=== PATIENT | female | born 1975 | race African-American/Black ===

== ENCOUNTER 2017-08-02 05:23 | Observation (INO) | payer OTHER ==
[2017-08-02] MEDS ORDERED: Nitroglycerin 2% Ointment 1 INCH/1 GM Packet ONE (05:38)
[2017-08-02 05:50] LABS: #Basophils 0.1 thou/uL (0.0-0.2); #Eosinphils 0.1 thou/uL (0.0-0.7); #Lymphocytes 1.6 thou/uL (1.20-3.40); #Monocytes 0.8 thou/uL (0.11-0.59); #Neutrophils 6.6 thou/uL (1.40-6.50); %Lymphocytes 17.9 % (21.0-51.0); %Monocytes 8.3 % (0.0-10.0); Hematocrit 40.4 % (36.0-47.0); Mean Platelet Volume 8.4 fL (7.4-10.4); Red Blood Cell (RBC) Count 4.19 mill/uL (4.20-5.40); White Blood Cell (WBC) Count 9.1 thou/uL (4.8-10.8)
[2017-08-02 05:53] LABS: PTT 30.3 SEC (22.9-36.1)
[2017-08-02 06:05] LABS: ALT (SGPT) 14 U/L (8-55); AST (SGOT) 15 U/L (5-34); Alkaline Phosphatase 83 U/L (40-150); Anion Gap 13 mmol/L (10-20); BUN (Urea Nitrogen) 11 mg/dL (7.0-18.7); Bilirubin, Total 0.4 mg/dL (0.2-1.2); CK (CPK) 93 U/L (29-168); Calc. Creatinine Clearance 0 mL/min (70-130); Calcium 9.1 mg/dL (7.8-10.44); Carbon Dioxide 25 mmol/L (22-29); Chloride 105 mmol/L (98-107); Estimated GFR-MDRD 81; Globulin 3.7 g/dL (2.4-3.5); Lipase 28 U/L (8-78); Protein, Total 7.5 g/dL (6.0-8.3)
[2017-08-02 06:08] LABS: Troponin I Less than 0.010 ng/mL (< 0.028)
[2017-08-02] MEDS ORDERED: Sodium Chloride 0.65% Nasal 44 ML BOT EA NARE PRN (07:48)
[2017-08-02] MEDS ORDERED: Dextrose 5% in Water 1,000 ML IV PRN (07:48)
[2017-08-02] MEDS ORDERED: Mag-Al 1200 mg/1200 mg/30 ML UDCUP PO PRN (07:48)
[2017-08-02] MEDS ORDERED: Dextrose 50% Abboject 50 ML SYRINGE SLOW IVP PRN (07:48)
[2017-08-02] MEDS ORDERED: Milk Of Magnesia 30 ML UDCUP PO PRN (07:48)
[2017-08-02] MEDS ORDERED: Ondansetron HCl/PF 4 MG/2 ML Vial IVP PRN (07:48)
[2017-08-02] MEDS ORDERED: Ondansetron ODT 4 MG TAB PO PRN (07:48)
[2017-08-02] MEDS ORDERED: HumaLOG 300 UNITS/3 ML VIAL SC PRN ×2 (07:48)
[2017-08-02] MEDS ORDERED: Loperamide HCl 2 MG CAP PO PRN (07:48)
[2017-08-02] MEDS ORDERED: Senokot 8.6 MG TAB PO PRN (07:48)
[2017-08-02] MEDS ORDERED: Chloraseptic Spray 180 ml Bottle PO PRN (07:48)
[2017-08-02] MEDS ORDERED: Acetaminophen 325 MG TAB PO PRN (07:48)
[2017-08-02] MEDS ORDERED: Loratadine 10 MG TAB PO PRN (07:48)
[2017-08-02] MEDS ORDERED: hydrALAZINE 20 MG/ML VIAL SLOW IVP PRN (07:48)
[2017-08-02] MEDS ORDERED: Zolpidem Tartrate 5 MG TAB PO PRN (07:48)
[2017-08-02] MEDS ORDERED: Diabetic Tussin 200 MG/10 ML UDCUP PO PRN (07:48)
[2017-08-02] MEDS ORDERED: Nitroglycerin 0.4 MG TAB (25 Tab Bottle) SL PRN (07:48)
[2017-08-02] MEDS ORDERED: Eucerin (Mineral Oil/Petrolatum,White) 30 gm Jar TOP PRN (07:48)
[2017-08-02 08:15] VITALS: BMI 60.4
[2017-08-02] MEDS: Aspirin 325 MG TAB PO SCH (08:52)
[2017-08-02] MEDS: Famotidine 20 MG TAB PO SCH ×2 (08:52→19:51)
[2017-08-02] MEDS: HYDROcodone/Acetaminophen 5/325 mg Tablet PO PRN (08:53)
[2017-08-02] MEDS ORDERED: AMLODIPINE PO SCH (09:00)
[2017-08-02] MEDS ORDERED: Dapagliflozin Propanediol [Farxiga] 10 MG PO SCH (09:00)
[2017-08-02] MEDS ORDERED: [UNRECOGNIZED DRUG - OTHER] PO SCH (09:00)
[2017-08-02] MEDS ORDERED: VALSARTAN PO SCH (09:00)
[2017-08-02] MEDS ORDERED: Atorvastatin Calcium 40 MG TAB PO SCH ×2 (09:00→21:00)
[2017-08-02 09:13] LABS: Troponin I Less than 0.010 ng/mL (< 0.028)
--- NOTE | 2017-08-02 10:26 | RAD ---
PORTABLE AP CHEST: Date: 08/02/17 HISTORY: Chest pain. COMPARISON: 09/01/15. FINDINGS: Cardiac silhouette is magnified by projection and is at the upper limits of normal in size. Pulmonary vasculature is within normal limits. Lungs remain clear. There has been no significant interval sesay ge from the prior study. IMPRESSION: No acute cardiopulmonary process. POS: [facility]
[2017-08-02 12:35] LABS: Troponin I Less than 0.010 ng/mL (< 0.028)
--- NOTE | 2017-08-02 14:07 | HP ---
PRIMARY CARE PHYSICIAN: Dr. Ashley Paiz. REASON FOR ADMISSION: Chest pain. HISTORY OF PRESENT ILLNESS: A 42-year-old -English female with a history of hypertension, di abetes type 2, morbid obesity, dyslipidemia who presented to the emergency room for evaluation of hanane st pain. Patient reports that for the last one week she is experiencing on and off chest pain on a d aily basis, intensity and frequency of pain is gradually getting worse. Patient describes typical ep isode with chest pain on the left side, sharp in nature, lasts for a few seconds and subsides by itse lf with subsequent nagging pain. There is no specific aggravating or relieving factor. It happens a nytime even if resting, walking or sleeping. She feels poking sensation in her left side of the ches t underneath of her left breast. Last night around 10:00 p.m. she was having exactly similar pain, b ut it was more intense and more prolonged as well as pain also started radiating to left upper extrem ity and she was concerned about it and decided to come to the emergency room for evaluation. Patient denies any relation of chest pain with food, respiration or activity. She denies any acid reflux. She denies any rash. She denies any trauma. She denies any shortness of breath, palpitation, dizzin ess, nausea, vomiting or diaphoresis. Patient denies any UTI symptoms. She denies any constipation, diarrhea, melena, hematochezia. She d enies any similar pain in the past. She denies any fever or flu-like illness. ALLERGIES: No known drug allergies. CURRENT HOME MEDICATIONS: Amlodipine with valsartan 5/160 one tablet p.o. daily, Tenormin 25 mg p.o. daily, Lipitor 40 mg p.o. daily, Farxiga 10 mg p.o. daily, Aldactazide 25/25 one tablet p.o. daily, Ambien 10 mg p.o. at bedtime p.r.n. REVIEW OF SYSTEMS: The following complete review of systems was negative, unless otherwise mentioned in the HPI or below: Constitutional: Weight loss or gain, ability to conduct usual activities. Skin: Rash, itching. Eyes: Double vision, pain. ENT/Mouth: Nose bleeding, neck stiffness, pain, tenderness. Cardiovascular: Palpitations, dyspnea on exertion, orthopnea. Respiratory: Shortness of breath, wheezing, cough, hemoptysis, fever or night sweats. Gastrointestinal: Poor appetite, abdominal pain, heartburn, nausea, vomiting, constipation, or diarr hea. Genitourinary: Urgency, frequency, dysuria, nocturia. Musculoskeletal: Pain, swelling. Neurologic/Psychiatric: Anxiety, depression. Allergy/Immunologic: Skin rash, bleeding tendency. Please see my HPI for pertinent positives and negatives. All other review of systems reviewed and ne gative except as mentioned in the HPI. PAST MEDICAL HISTORY: Morbid obesity with BMI 60, diabetes type 2, hypertension, dyslipidemia. PAST SURGICAL HISTORY: Hysterectomy and x2. PAST PSYCHIATRIC HISTORY: Reviewed and negative. SOCIAL HISTORY: Patient is and lives at home with the family. No history of tobacco, alcoho l or illicit drug abuse. She is not working. FAMILY HISTORY: Significantly positive for coronary artery disease among several family members. No family history of cancer or stroke. EMERGENCY ROOM COURSE: Patient is given nitro patch and IV fluid. PHYSICAL EXAMINATION: VITAL SIGNS: On arrival, blood pressure 147/96, pulse 85, respiratory rate 22, temperature 98.5, sat uration 98% on room air, weight 145.2 kilograms. GENERAL: Patient is currently alert, awake, no obvious acute distress. HEENT: Normocephalic, atraumatic. Eyes: Pupils round, reactive to light. Extraocular muscles inta ct. ENT: Oropharynx within normal limits. Moist mucous membranes. No oral lesions. No pharyngeal eryt cari, no exudate. NECK: Supple. Range of motion is normal. No meningeal signs of irritation. LUNGS: Clear to auscultation without any rhonchi or rales. CARDIAC: S1, S2 regular without any murmur. ABDOMEN: Morbid obesity limiting examination. No peritoneal sign, no organomegaly, no mass, no supr apubic tenderness. BACK: Unremarkable, no CVA tenderness. EXTREMITIES: Upper extremity passive movements of all joints are normal. Lower extremities: No jessee ma, no calf tenderness. Good peripheral pulsation. SKIN: No skin rash. HEMATOLOGICAL: No lymphadenopathy. PSYCHIATRIC: Normal affect. NEUROLOGIC: Nonfocal examination. SIGNIFICANT LABS: EKG based on my review, normal sinus rhythm, left atrial enlargement. Chest x-ray based on my review, no acute cardiopulmonary process. CBC: WBC 9.1, hemoglobin 12.7, platelet 233. INR 1.0. BMP shows sodium 139, potassium 3.6, chloride 105, carbon dioxide 25, BUN 11, creatinine 0.91, glucose 145, calcium 9.1. LFT: AST 15, ALT 14, alkaline phosphatase 83, albumin 3.8, CK 93, C K-MB 1.1, troponin I less than 0.010, BNP 16.4 and subsequent cardiac enzymes negative x2. Triglycer patel 119. Cholesterol 162, LDL 100, HDL 38, lipase 28. ASSESSMENT AND PLAN: 1. Acute and recurrent chest pain. Patient's chest pain description is predominantly noncardiac and most likely nonanginal. This patient has several risk factors for coronary artery disease including diabetes, hypertension, dyslipidemia, and family history. Currently, EKG is negative for any ischem ia. Chest x-ray is normal. Cardiac enzymes are negative. At this point, for benefit of doubt and t o rely the patient's concerns and anxiety, we will perform exercise Cardiolite stress test given the patient's morbid obesity that can be done in 2 days protocol. If it is done today and if that come b ack negative, then we will consider discharging her later on today. Otherwise, we will wait for comp lete stress test to be done. Dietary education and weight loss education and healthy lifestyle measu re discussed with the patient. Meanwhile, we will continue with aspirin. We will also consider blayne ng Pepcid 20 mg p.o. b.i.d. 2. Hypertension. At this point, we will continue patient's home medication of amlodipine with valsa rtan 5/160 one tablet p.o. daily and Tenormin 25 mg p.o. daily will be continued after discharge. We will also continue Aldactazide 25/25 one tablet p.o. daily. 3. Dyslipidemia. Lipid profile checked and that is well controlled with Lipitor 40 mg p.o. at bedti me. 4. Diabetes type 2. We will continue Farxiga 10 mg p.o. daily. Diabetic diet will be given after s tress test. 5. Insomnia. We will continue Ambien 10 mg p.o. at bedtime p.r.n. 6. Morbid obesity with BMI 60. Dietary education given, weight loss education given. Healthy lifes tyle measures discussed with the patient. 7. Deep venous thrombosis prophylaxis not needed because we are expecting discharge in 24 hours. 8. Gastrointestinal prophylaxis, Pepcid 20 mg p.o. b.i.d. 9. Code status: The patient is FULL CODE. Patient does not have any surrogate decision maker. Disposition and plan based on stress test result.
[2017-08-02] MEDS ORDERED: Regadenoson 0.4 MG/5 ML SYRINGE ONE (14:39)
[2017-08-02] MEDS: Spironolactone/Hctz 25 MG/25 MG TABLET PO SCH (15:07)
[2017-08-02] MEDS: Amlodipine 5 MG TAB PO SCH (15:07)
[2017-08-02] MEDS: Valsartan 80 MG TAB PO SCH (15:08)
[2017-08-02] MEDS: Nitroglycerin 2% Ointment 1 INCH/1 GM Packet TOP SCH ×2 (15:08→19:51)
[2017-08-02 20:11] VITALS: TEMP 98.4
[2017-08-03] MEDS: Nitroglycerin 2% Ointment 1 INCH/1 GM Packet TOP SCH (05:59)
[2017-08-03 07:56] VITALS: BP 134/81
[2017-08-03] MEDS: Aspirin 325 MG TAB PO SCH (09:13)
[2017-08-03] MEDS: HYDROcodone/Acetaminophen 5/325 mg Tablet PO PRN (09:14)
[2017-08-03] MEDS: Valsartan 80 MG TAB PO SCH (09:14)
[2017-08-03] MEDS: Spironolactone/Hctz 25 MG/25 MG TABLET PO SCH (09:14)
[2017-08-03] MEDS: Famotidine 20 MG TAB PO SCH (09:15)
[2017-08-03] MEDS: Amlodipine 5 MG TAB PO SCH (09:15)
--- NOTE | 2017-08-03 11:22 | NM ---
CARDIAC SPECT WITH EJECTION FRACTION AND WALL MOTION: HISTORY: 42-year-old female with chest pain. History of hypertension and diabetes mellitus. TECHNIQUE/FINDINGS: Patient was injected with 33 mCi technetium-99m sestamibi intravenously for stress images and patient was injected with 33.0\ mCi of technetium-99m sestamibi intravenously for resting images. Multiple SPECT images in the short axis, vertical long axis, and horizontal long axis demonstrate no scan evidence for overt infarct or ischemia. TID: 1.08 LHR: 0.37 EDV: 76 ml EF: 64% MYOCARDIAL PERFUSION WALL MOTION: Wall motion is unremarkable. IMPRESSION: Normal study POS: [facility]
--- NOTE | 2017-08-03 11:46 | PDOC.PN ---
- Subjective Encounter Start Date: 08/03/17 Encounter Start Time: 07:10 Patient seen and examined. No new complaints. No overnight events - Objective Resuscitation Status: Resuscitation Status FULL:Full Resuscitation MAR Reviewed: Yes Vital Signs & Weight: Vital Signs (12 hours) Temp Pulse Resp BP BP Pulse Ox 08/03/17 09:15 71 134/81 08/03/17 07:30 98.4 F 71 15 08/03/17 07:15 98.4 F 71 16 134/81 71 L 08/03/17 04:00 67 18 132/64 96 Weight Weight 320 lb I&O: 08/02/17 08/03/17 08/04/17 06:59 06:59 06:59 Intake Total 500 240 Output Total 1500 Balance -1000 240 Result Diagrams: 08/02/17 05:41 08/02/17 05:41 Additional Labs: Accuchecks 08/02/17 08/02/17 19:51 17:13 POC Glucose 162 H 115 H Radiology Reviewed by me: Yes (stress test negative) EKG Reviewed by me: Yes (nsr) Phys Exam - Physical Examination Constitutional: NAD HEENT: PERRLA, moist MMs, sclera anicteric Neck: no JVD, supple Respiratory: no wheezing, no rales, no rhonchi Cardiovascular: RRR, no significant murmur, no rub Gastrointestinal: soft, non-tender, no distention, positive bowel sounds Musculoskeletal: no edema, pulses present Neurological: non-focal, normal sensation Lymphatic: no nodes Psychiatric: normal affect, A&O x 3 Skin: no rash, normal turgor Dx/Plan (1) Chest pain Code(s): R07.9 - CHEST PAIN, UNSPECIFIED Status: Acute (2) Diabetes type 2, controlled Code(s): E11.9 - TYPE 2 DIABETES MELLITUS WITHOUT COMPLICATIONS Status: Chronic (3) Dyslipidemia Code(s): E78.5 - HYPERLIPIDEMIA, UNSPECIFIED Status: Chronic (4) Hypertension Code(s): I10 - ESSENTIAL (PRIMARY) HYPERTENSION Status: Chronic (5) Morbid obesity with BMI of 60.0-69.9, adult Code(s): E66.01 - MORBID (SEVERE) OBESITY DUE TO EXCESS CALORIES; Z68.44 - BODY MASS INDEX (BMI) 60.0-69.9, ADULT Status: Chronic - Plan cont current plan of care * medication reviewed as below * symptomatic treatment * see discharge summery * stress test normal. Review of Systems - Review of Systems ENT: negative: Ear Pain, Ear Discharge, Nose Pain, Nose Discharge, Nose Congestion, Mouth Pain, Mouth Swelling, Throat Pain, Throat Swelling, Other Respiratory: negative: Cough, Dry, Shortness of Breath, Hemoptysis, SOB with Excertion, Pleuritic Pain, Sputum, Wheezing Cardiovascular: negative: Chest Pain, Palpitations, Orthopnea, Paroxysmal Noc. Dyspnea, Edema, Light Headedness, Other Gastrointestinal: negative: Nausea, Vomiting, Abdominal Pain, Diarrhea, Constipation, Melena, Hematochezia, Other Genitourinary: negative: Dysuria, Frequency, Incontinence, Hematuria, Retention , Other Musculoskeletal: negative: Neck Pain, Shoulder Pain, Arm Pain, Back Pain, Hand Pain, Leg Pain, Foot Pain, Other - Medications/Allergies Allergies/Adverse Reactions: Allergies Allergy/AdvReac Type Severity Reaction Status Date / Time No Known Allergies Allergy Verified 05/19/13 13:26
--- NOTE | 2017-08-03 15:05 | DIS ---
DATE OF ADMISSION: 08/02/2017 DATE OF DISCHARGE: 08/03/2017 PRIMARY CARE PHYSICIAN: Dr. Ashley Paiz. DISCHARGE DISPOSITION: Home. PRIMARY DISCHARGE DIAGNOSIS: Chest pain, ruled out acute coronary syndrome. SECONDARY DISCHARGE DIAGNOSES: Morbid obesity with BMI 60, diabetes type 2, hypertension, dyslipidem ia. PRIMARY PROCEDURE/OPERATION: None. RADIOLOGICAL INVESTIGATION: Chest x-ray normal. Stress test negative. SIGNIFICANT LABORATORY: WBC 9.1, hemoglobin 12.7, INR 1.0. Creatinine 0.91, electrolytes normal. L FTs normal. Cardiac enzymes negative. LDL 100, lipase 28. BNP 16.4. DISCHARGE MEDICATIONS: Pepcid 20 mg p.o. b.i.d., Ventolin HFA 2 puffs q.6 hourly p.r.n., amlodipine/ valsartan 5/160 one tablet p.o. daily, Tenormin 25 mg p.o. daily, Lipitor 40 mg p.o. at bedtime, Forx iga 10 mg p.o. daily, Aldactazide 25 mg p.o. daily, Ambien 10 mg p.o. at bedtime p.r.n. CONTRAINDICATIONS: None. CODE STATUS: FULL CODE. INPATIENT CONSULTANTS: None. ALLERGIES: No known drug allergies. DISCHARGE PLAN: Post hospital, the patient will follow up with primary care physician in 1 week. HOSPITAL COURSE: A 42-year-old female with above-mentioned medical problem, who was admitted by me. Please see my H&P for further details. The patient was admitted for chest pain. Initially, electro cardiogram was normal. Cardiac enzymes were negative. Chest x-ray was normal. Patient has several risk factors for coronary artery disease and that is why we kept this patient in the hospital for hanane st pain workup. We did stress test and stress test came back negative. Stress test was done in 2 da ys protocol. Overall, this patient is medically stable. The patient was seen and examined at bedside today. Connie tavares see my progress note from today for further details. Plan of care discussed with the patient. Al l new medication prescription given to her. The patient is advised to get outpatient pulmonary funct ion test to rule out underlying asthma.
== END 2017-08-03 11:45 | disposition home or self-care (01) ==
LOC: ERS 05:23 → 2SW 07:35
PROVIDERS: ADMIT Internal Medicine; ATTEND Internal Medicine
DX: R07.89 Other chest pain (principal); I10 Essential (primary) hypertension; E11.9 Type 2 diabetes mellitus without complications; E78.5 Hyperlipidemia, unspecified; G47.00 Insomnia, unspecified; E66.01 Morbid (severe) obesity due to excess calories; Z68.44 Body mass index [BMI] 60.0-69.9, adult; Z79.84 Long term (current) use of oral hypoglycemic drugs; Z79.899 Other long term (current) drug therapy; Z90.710 Acquired absence of both cervix and uterus; Z87.891 Personal history of nicotine dependence
CPT/HCPCS: 36415; 36416; 71010; 78452; 80053; 80061; 82550; 82553; 83690; 83880; 84484; 85025; 85610; 85730; 93005; 93017; 94640; 94760; 96374; A9500; G0378; J2405; J2785; J7620; Q0162

== ENCOUNTER 2017-08-07 09:35 | Observation (INO) | payer OTHER ==
[~2017-08-07 09:35] MED LIST: ISOVUE-370 76%-LOCM 1 ML ONE
[2017-08-07 10:18] LABS: #Eosinphils 0.1 thou/uL (0.0-0.7); #Lymphocytes 1.7 thou/uL (1.20-3.40); #Monocytes 0.8 thou/uL (0.11-0.59); #Neutrophils 5.6 thou/uL (1.40-6.50); %Basophils 0.2 % (0.0-1.0); %Eosinophils 1.2 % (0.0-10.0); %Lymphocytes 21.2 % (21.0-51.0); %Monocytes 9.3 % (0.0-10.0); Hematocrit 41.7 % (36.0-47.0); Mean Platelet Volume 8.2 fL (7.4-10.4); Red Blood Cell (RBC) Count 4.28 mill/uL (4.20-5.40); White Blood Cell (WBC) Count 8.2 thou/uL (4.8-10.8)
[2017-08-07] MEDS ORDERED: Nitroglycerin 2% Ointment 1 INCH/1 GM Packet ONE (10:20)
[2017-08-07 10:43] LABS: ALT (SGPT) 14 U/L (8-55); AST (SGOT) 17 U/L (5-34); Alkaline Phosphatase 83 U/L (40-150); Anion Gap 11 mmol/L (10-20); BUN (Urea Nitrogen) 12 mg/dL (7.0-18.7); Bilirubin, Total 0.6 mg/dL (0.2-1.2); CK (CPK) 69 U/L (29-168); Calc. Creatinine Clearance 0 mL/min (70-130); Calcium 9.4 mg/dL (7.8-10.44); Carbon Dioxide 26 mmol/L (22-29); Chloride 102 mmol/L (98-107); Estimated GFR-MDRD 77; Globulin 3.4 g/dL (2.4-3.5); Lipase 26 U/L (8-78); Protein, Total 7.1 g/dL (6.0-8.3)
[2017-08-07 10:47] LABS: Troponin I Less than 0.010 ng/mL (< 0.028)
--- NOTE | 2017-08-07 10:50 | RAD ---
PORTABLE AP CHEST: Date: 08-07-17 History: Chest pain. Comparison: 08-02-17 FINDINGS: Cardiac silhouette and pulmonary vasculature are within normal limits. Lungs are clear. There has bee n no interval change from prior study. IMPRESSION: No acute cardiopulmonary process. POS: [facility]
[2017-08-07] MEDS ORDERED: PROVENTIL INHALER 6.7 G (200 INHALATIONS) INH PRN (12:09)
[2017-08-07] MEDS ORDERED: Non-Formulary Item 1 EACH (Zolpidem Tartrate [Ambien] 10 MG) PO PRN (12:09)
[2017-08-07] MEDS ORDERED: Zolpidem Tartrate 5 MG TAB PO PRN (12:30)
[2017-08-07] MEDS ORDERED: Loratadine 10 MG TAB PO PRN (12:37)
[2017-08-07] MEDS ORDERED: Acetaminophen 325 MG TAB PO PRN (12:37)
[2017-08-07] MEDS ORDERED: Dextrose 5% in Water 1,000 ML IV PRN (12:37)
[2017-08-07] MEDS ORDERED: Senokot 8.6 MG TAB PO PRN ×2 (12:37)
[2017-08-07] MEDS ORDERED: traMADol HCl 50 MG TAB PO PRN (12:37)
[2017-08-07] MEDS ORDERED: Diabetic Tussin 200 MG/10 ML UDCUP PO PRN (12:37)
[2017-08-07] MEDS ORDERED: Calcium Carbonate 500 MG ChewTAB PO PRN (12:37)
[2017-08-07] MEDS ORDERED: Bisacodyl 5 MG TAB PO PRN ×2 (12:37)
[2017-08-07] MEDS ORDERED: HYDROcodone/Acetaminophen 5/325 mg Tablet PO PRN (12:37)
[2017-08-07] MEDS ORDERED: cloNIDine 0.1 MG TAB PO PRN (12:37)
[2017-08-07] MEDS ORDERED: Ondansetron HCl/PF 4 MG/2 ML Vial IVP PRN (12:37)
[2017-08-07] MEDS ORDERED: Lorazepam 1 MG TAB PO PRN (12:37)
[2017-08-07] MEDS ORDERED: HumaLOG 300 UNITS/3 ML VIAL SC PRN ×2 (12:37)
[2017-08-07] MEDS ORDERED: Dextrose 50% Abboject 50 ML SYRINGE SLOW IVP PRN (12:37)
[2017-08-07] MEDS ORDERED: Nitroglycerin 0.4 MG TAB (25 Tab Bottle) SL PRN (12:37)
[2017-08-07] MEDS ORDERED: hydrALAZINE 20 MG/ML VIAL SLOW IVP PRN (12:37)
[2017-08-07] MEDS ORDERED: Mag-Al 1200 mg/1200 mg/30 ML UDCUP PO PRN (12:37)
[2017-08-07] MEDS ORDERED: Benzonatate 100 MG CAP PO PRN (12:37)
--- NOTE | 2017-08-07 13:37 | HP ---
DATE OF ADMISSION: 08/07/2017 PRIMARY CARE PHYSICIAN: Dr. Ashley Paiz CHIEF COMPLAINT: Chest pain. HISTORY OF PRESENTING ILLNESS: Ms. Spears is a 42-year-old morbidly obese diabetic -Iranian f emale with a history of hypertension as well who presented to the ER with the above-mentioned complai nt. History is mainly obtained by the patient herself and electronic medical records have been revie wed. Case has been discussed with the admitting ER physician. Ms. Spears was admitted just few days ago on 08/02/2017 with similar complaints and underwent a nuclea r medicine stress test to rule out ACS. It showed preserved ejection fraction of 64% with unremarkab le wall motion and no ischemia or infarction. She was discharged on 08/03/2017. Today, she comes back in for persistent chest pain. She reports it as a pressure-like sensation. Sh e reports it as 10/10 in intensity and it comes and goes. She cannot recall any relieving factors. It happens at rest and at exertion. No associated symptoms like palpitation, nausea, dizziness, or d iaphoresis. The pain is nonradiating. The patient denies any recent illnesses. Upon presentation to the emergency room, she was hemodynami simona stable today with a blood pressure of 119/79, a pulse of 76. Her initial cardiac enzyme is neg ative and EKG is unremarkable. BNP is within normal limits. Given the fact that the patient had sig nificant family history of cardiac disease. The patient is being admitted again for further cardiac workup, possibly cardiac catheterization. She reports that her sister at the age of 47 of a mas sive heart attack in both of parents in the 60s with heart attack. She does report that she is under a lot of stress lately, but does not elaborate. PAST MEDICAL HISTORY: 1. Diabetes mellitus. 2. Hypertension. 3. Morbid obesity. 4. Dyslipidemia. PAST SURGICAL HISTORY: Hysterectomy and . PSYCHIATRIC HISTORY: Reports anxiety. SOCIAL HISTORY: She is and lives at home with the family. No history of drug, tobacco or al cohol abuse. FAMILY HISTORY: Significant for coronary artery and as stated above. Her grandfather also had a str juanis. ALLERGIES: No known medication allergies. CURRENT MEDICATIONS: As per the most recent discharge summary dictated 4 days ago. She is supposed to be taking the following medications: Pepcid 20 mg p.o. b.i.d., Ventolin inhaler as needed, amlodi pine/valsartan 5/160 mg 1 tablet p.o. daily, Tenormin 25 mg daily, Lipitor 40 mg daily, Farxiga 10 mg daily, Aldactazide 25 mg daily, and Ambien 10 mg daily at bedtime p.r.n. REVIEW OF SYSTEMS: The following complete review of systems was negative, unless otherwise mentioned in the HPI or below: CONSTITUTIONAL: Weight loss or gain, ability to conduct usual activities. SKIN: Rash, itching. EYES: Double vision, pain. ENT/MOUTH: Nose bleeding, neck stiffness, pain, tenderness. CARDIOVASCULAR: Palpitations, dyspnea on exertion, orthopnea. RESPIRATORY: Shortness of breath, wheezing, cough, hemoptysis, fever or night sweats. GASTROINTESTINAL: Poor appetite, abdominal pain, heartburn, nausea, vomiting, constipation, or diarr hea. GENITOURINARY: Urgency, frequency, dysuria, nocturia. MUSCULOSKELETAL: Pain, swelling. NEUROLOGIC/PSYCHIATRIC: Anxiety, depression. ALLERGY/IMMUNOLOGIC: Skin rash, bleeding tendency. CODE STATUS: FULL CODE, discussed with the patient. LABORATORY DATA: CBC is unremarkable. Her D-dimer is elevated at 0.64. Serum chemistries: Sodium 135, blood sugar 123. Troponin less than 0.010. Her liver enzymes are within normal limits. Lipase is normal at 26. Chest x-ray by my review has no evidence of pleural effusion, edema, or infiltrate . A 12-lead EKG by my review shows normal sinus rhythm without any acute ST or T-wave changes indicativ e of acute coronary syndrome. PHYSICAL EXAMINATION: VITAL SIGNS: Upon presentation include blood pressure 119/79, pulse of 76, respirations 17, saturati ng 100% on room air, and temperature 98.2. GENERAL: She appears uncomfortable and somewhat noncooperative because of possibly persistent pain. HEENT: Mucous membrane is moist and pink. No oropharyngeal exudate or erythema. Head is normocepha lic, atraumatic. Pupils equally reactive to light and accommodation. Extraocular movements intact. NECK: Supple without any lymphadenopathy, JVD or bruit. CHEST: Clear to auscultation without any wheezing, rales, or rhonchi. Rate and rhythm is regular wi thout any murmur, rubs, or gallops. ABDOMEN: Soft, nontender, nondistended, positive bowel sounds. EXTREMITIES: Free of any cyanosis, clubbing, or edema. NEUROLOGIC: Nonfocal. SKIN: Free of any rashes or bruises, feels warm and dry. PSYCHIATRIC: Appears anxious. VASCULAR: +2 pedal pulses felt bilaterally. IMPRESSION AND PLAN: 1. Persistent and recurrent chest pain. Given the patient's multiple risk factors including morbid obesity, diabetes, hypertension, dyslipidemia and a very strong family history: She will be readmitt ed to the hospital under observation status. With recent negative cardiac stress testing: We will c [facility] for further recommendations. At this time, continue aspirin that she was given in the ER along with continuation of the beta gabi and ARB. Also, continue the statin and add sublin gual nitroglycerin. We will also rule out other causes for the chest pain including pulmonary emboli sm as a D-dimer was sent and was found to be high. I have ordered a CT angio and we will follow the results. Clinical likelihood of pulmonary embolism is, however, low at this time given the fact that the patient has no dyspnea or hypoxia. More common scenario can be anxiety given the fact that the patient is under severe stress lately. She does report that her symptoms are ongoing for months, but have been worse only the last month. Abdominal causes are less likely given normal bilirubin and li krystal enzymes. We will continue with her Pepcid for now. 2. Hypertension. We will resume her home medications once the dosages are confirmed. 3. Dyslipidemia. Lipid profile was checked the last time she was here. We will continue with Lipit or. 4. Diabetes mellitus 2. We will continue Farxiga for now and add insulin sliding scale for improved control with frequent Accu-Cheks. Controlled diet has been ordered. 5. Morbid obesity with a BMI of 60. The patient will be educated once again once she is feeling jose ewhat better. She was educated last time, she was here about the healthy lifestyles. 6. Deep venous thrombosis and gastrointestinal prophylaxis. 7. Code status: FULL CODE. DISPOSITION: Ms. Spears is being admitted again for similar symptoms for further workup including Car diology consultation. Further management will depend upon her clinical course.
[2017-08-07 14:01] LABS: Troponin I Less than 0.010 ng/mL (< 0.028)
[2017-08-07] MEDS ORDERED: Communication Order-Pharmacy FS SCH (16:00)
--- NOTE | 2017-08-07 17:15 | CT ---
CT PULMONARY ANGIO OF CHEST: Date: 08/07/17 Multiple axial tomograms obtained through chest with pulmonary angio protocol. Multiplanar reconstruc tion with 3D postprocessing. HISTORY: Chest pain. Elevated D-Dimer. FINDINGS: Pulmonary arteries show adequate opacification. There is no evidence of pulmonary embolus. The thorac ic aorta is opacified and there is no evidence of thoracic aortic dissection. The lungs are clear. Th ere is no infiltrate or effusion. Mediastinum is unremarkable. Images through upper abdomen are unrem arkable. IMPRESSION: 1. No evidence of pulmonary embolus. 2. No acute lung process. POS: [facility]
--- NOTE | 2017-08-07 19:00 | CON ---
DATE OF CONSULTATION: 08/07/2017 HISTORY OF PRESENT: The patient is a pleasant 42-year-old woman who presents with recurrent chest discomfort. The patient reports having for the past several months a left-sided chest discomfort. This discomfort usually lasts for a few seconds. For the past few weeks, it has been increasing in frequency. She was recently hospitalized with recurrent chest pain. She underwent a Cardiolite stress test which revealed normal left ventricular ejection fraction and no evidence of ischemia. The patient for the past several days since being discharged has continued to have this discomfort. She reports it has been increasing in frequency. The patient states this discomfort is not brought on by exertion. The patient denies having any dyspnea. Patient has multiple cardiac risk factors including hypertension, dyslipidemia, diabetes mellitus, and a strong family history of coronary artery disease. PAST MEDICAL HISTORY: 1. Diabetes mellitus. 2. Hypertension. 3. Dyslipidemia. PAST SURGICAL HISTORY: Hysterectomy and . SOCIAL HISTORY: Nonsmoker. FAMILY HISTORY: Strong family history of heart disease with a mother, father, and sister who had early coronary artery disease. MEDICATIONS ON ADMISSION: Tenormin 25 daily, Lipitor 40 at bedtime, Aldactazide 25 daily, Farxiga 10 daily, amlodipine/valsartan 5/160 one tablet daily, and Ambien 10 at bedtime p.r.n. REVIEW OF SYSTEMS: Ten-point system otherwise unremarkable. No history of easy bruising or bleeding, bright red blood per rectum, hematuria. PHYSICAL EXAMINATION: GENERAL: This is an obese woman in no acute distress. VITAL SIGNS: Blood pressure 143/96, heart rate was 75. NECK: Showed no jugular venous distention. LUNGS: Clear to auscultation. HEART: Regular rate and rhythm, normal S1, S2, no murmurs. ABDOMEN: Markedly distended. EXTREMITIES: Showed no edema. SKIN: Warm and dry. NEUROLOGIC: Nonfocal. VASCULAR: Radial pulses 2+. LABORATORY DATA: Sodium 135, potassium 3.9, chloride 102, bicarbonate 26, BUN 12, creatinine 0.95, glucose 123, troponin less than 0.01. White blood cell count 8.2, hemoglobin 13.0, hematocrit 41.7, platelets are 237. Her D-dimer was 0.64. Her EKG reveals her to have normal sinus rhythm with a normal ECG. IMPRESSION: 1. Chest pain, atypical. 2. Hypertension. 3. Diabetes mellitus. 4. Dyslipidemia. 5. Morbid obesity. This patient presents with chest pain that is atypical. She does have multiple risk factors for coronary artery disease. I discussed the option of a definitive diagnosis as she has continued to have symptoms. Patient understands the risk involved with cardiac catheterization including [place], bleeding, stroke, cardiac arrhythmias, cardiac . The patient understands the risks involving stent placement and wishes to proceed. PLAN: Proceed with cardiac catheterization for definitive diagnosis. TAVON
[2017-08-07] MEDS: Famotidine 20 MG TAB PO SCH (20:31)
[2017-08-08 04:14] VITALS: BP 120/76
[2017-08-08 04:24] LABS: #Eosinphils 0.1 thou/uL (0.0-0.7); #Lymphocytes 1.8 thou/uL (1.20-3.40); #Monocytes 0.8 thou/uL (0.11-0.59); #Neutrophils 5.6 thou/uL (1.40-6.50); %Basophils 0.5 % (0.0-1.0); %Eosinophils 1.1 % (0.0-10.0); %Lymphocytes 21.4 % (21.0-51.0); %Monocytes 9.7 % (0.0-10.0); Hematocrit 39.8 % (36.0-47.0); Mean Platelet Volume 8.2 fL (7.4-10.4); Red Blood Cell (RBC) Count 4.12 mill/uL (4.20-5.40); White Blood Cell (WBC) Count 8.3 thou/uL (4.8-10.8)
[2017-08-08 04:34] LABS: Anion Gap 12 mmol/L (10-20); BUN (Urea Nitrogen) 12 mg/dL (7.0-18.7); Calc. Creatinine Clearance 175 mL/min (70-130); Calcium 9.3 mg/dL (7.8-10.44); Carbon Dioxide 28 mmol/L (22-29); Chloride 101 mmol/L (98-107); Estimated GFR-MDRD 84
[2017-08-08] MEDS: Famotidine 20 MG TAB PO SCH (06:14)
[2017-08-08] MEDS ORDERED: Heparin 1000 UNIT/NS 500ML(OR) 1,000 ML ONE (06:52)
[2017-08-08] MEDS ORDERED: Heparin 10,000 UNITS/1 ML VIAL ONE (08:07)
[2017-08-08] MEDS ORDERED: Nitroglycerin 100MG/250ML BOT 250 ML ONE (08:07)
[2017-08-08] MEDS ORDERED: Verapamil 5 MG/2 ML VIAL ONE (08:07)
[2017-08-08] MEDS ORDERED: traMADol HCl 50 MG TAB PO PRN (08:52)
[2017-08-08] MEDS ORDERED: Acetaminophen/Codeine 30-300mg Tablet PO PRN ×2 (08:52)
[2017-08-08] MEDS ORDERED: Sodium Chloride 0.9% 200 ML IV SCH (08:52)
[2017-08-08] MEDS ORDERED: [UNRECOGNIZED DRUG - OTHER] PO SCH (09:00)
[2017-08-08] MEDS ORDERED: VALSARTAN PO SCH (09:00)
[2017-08-08] MEDS ORDERED: Atenolol 25 MG TAB PO SCH (09:00)
[2017-08-08] MEDS ORDERED: Dapagliflozin Propanediol [Farxiga] 10 MG PO SCH (09:00)
[2017-08-08] MEDS ORDERED: AMLODIPINE PO SCH (09:00)
[2017-08-08] MEDS ORDERED: Atorvastatin Calcium 40 MG TAB PO SCH (09:00)
[2017-08-08] MEDS ORDERED: Valsartan 80 MG TAB PO SCH (09:00)
[2017-08-08] MEDS ORDERED: Non-Formulary Item 1 EACH (Dapagliflozin Propanediol [Farxiga] 10 MG) PO SCH (09:00)
[2017-08-08] MEDS ORDERED: Spironolactone/Hctz 25 MG/25 MG TABLET PO SCH ×2 (09:00)
[2017-08-08] MEDS ORDERED: Amlodipine 5 MG TAB PO SCH (09:00)
[2017-08-08 10:49] VITALS: TEMP 97.6
[2017-08-08] MEDS ORDERED: Iopamidol 370 76% 100 ML VIAL ONE (15:31)
--- NOTE | 2017-08-08 23:15 | DIS ---
DATE OF ADMISSION: 08/07/2017 DATE OF DISCHARGE: 08/08/2017 CONDITION AT THE TIME OF DISCHARGE: Stable and improved. DISCHARGE DIAGNOSES: 1. Chest pain, noncardiac. 2. Morbid obesity. 3. Hypertension. 4. Dyslipidemia. 5. Diabetes mellitus, type 2. PROCEDURES DONE IN THE HOSPITAL: Include; 1. Cardiac catheterization, which shows normal coronaries and EF estimated at 60% to 65%. 2. CT angio of the chest, which is negative for any pulmonary embolism or any acute processes. DISCHARGE MEDICATIONS: Remain the same as the admission medication. Please see the admission histor y and physical dictated by myself few hours ago. CONSULTATIONS: Cardiology, Dr. Emeka Garibay. HISTORY OF PRESENTING ILLNESS: Ms. Spears is a 42-year-old morbidly obese -[place] female wit h past medical history of diabetes, hypertension, dyslipidemia, who presented to the emergency room w ith complaints of . She was recently admitted to our facility earlier this month and underwent a stress test, which was unremarkable few days ago. However, she presented again then she did not h ave any improvement in her chest pain symptoms. She was admitted for possible cardiac catheterizatio n and further cardiac workup. Please see admission history and physical for further details. HOSPITAL COURSE: The patient continued to have on and off chest pain. D-dimer was checked and was f ound to be elevated, so she underwent a CT angio which was negative for PE. Cardiology was consulted and because of multiple risk factors, she underwent a cardiac catheterization, which was also unrema rkable. At this time, her symptoms are likely related to anxiety as she has described that she is undergoing a lot of stress. The patient was counseled extensively about the need to monitor her blood sugar and control them better and to have dietary discretion and increase exercise to reduce her weight. Her BMI is dangerously high at 56.7. She verbalized understanding and is eager to follow it. At this ti me, she will be discharged home. Her symptoms are neither cardiac nor pulmonary at this time.
== END 2017-08-08 14:32 | disposition home or self-care (01) ==
LOC: ERS 09:35 → 2SW 11:01
PROVIDERS: ADMIT Internal Medicine; ATTEND Internal Medicine
DX: R07.89 Other chest pain (principal); E66.01 Morbid (severe) obesity due to excess calories; I10 Essential (primary) hypertension; E78.5 Hyperlipidemia, unspecified; E11.9 Type 2 diabetes mellitus without complications; F41.9 Anxiety disorder, unspecified; Z68.43 Body mass index [BMI] 50.0-59.9, adult; Z79.84 Long term (current) use of oral hypoglycemic drugs; Z79.899 Other long term (current) drug therapy; Z90.710 Acquired absence of both cervix and uterus; Z98.890 Other specified postprocedural states
CPT/HCPCS: 36415; 36416; 71010; 71275; 80048; 80053; 82550; 82553; 83690; 84484; 85025; 85379; 93005; 93458; A4216; C1769; G0378; J1644

== ENCOUNTER 2017-08-26 07:36 | Emergency (ER) | payer OTHER ==
--- NOTE | 2017-08-26 09:58 | RAD ---
TWO VIEW CHEST: HISTORY: Cough. COMPARISON: 09/01/15. FINDINGS: Lungs appear clear. No infiltrate. Heart and mediastinum unremarkable. Osseous structures unremark able. IMPRESSION: Unremarkable chest. POS: [facility]
== END 2017-08-26 11:40 | disposition home or self-care (01) ==
LOC: ERS 07:36
DX: J40 Bronchitis, not specified as acute or chronic (principal); E11.9 Type 2 diabetes mellitus without complications; I10 Essential (primary) hypertension; Z79.899 Other long term (current) drug therapy
CPT/HCPCS: 71020; 94640; J7620

== ENCOUNTER 2019-09-12 07:43 | Day surgery (SDC) | payer MEDICARE, MEDICAID ==
[2019-09-11 15:29] VITALS: BMI 58.7
[2019-09-12] MEDS ORDERED: Lidocaine 1% PF 5 ML VIAL ONE (10:35)
[2019-09-12] MEDS ORDERED: PROPOFOL 200 MG/20 ML VIAL ONE (10:35)
--- NOTE | 2019-09-12 10:44 | OP ---
DATE OF PROCEDURE: 09/12/2019 PROCEDURES PERFORMED: Esophagogastroduodenoscopy with biopsy, colonoscopy with biopsy, and polypectomy. INDICATION FOR PROCEDURE: Epigastric abdominal pain, chronic diarrhea, hematochezia. DESCRIPTION OF PROCEDURE: After the risks and benefits of the procedure were explained to the patient including risks of bleeding, infection, perforation, reactions to anesthesia, aspiration, and/or pain, informed consent was obtained. The patient was then taken to the endoscopy suite, where she was maneuvered into the left lateral decubitus position followed by introduction of deep sedation via propofol and anesthesia support. Once adequate sedation was achieved, the standard gastroscope was introduced into the mouth with intubation of the esophagus, stomach, and the proximal small intestines with the findings listed below. The patient tolerated this portion of the procedure well with no immediate perioperative complications. Upon conclusion of this portion of the procedure, all equipment was removed from the patient and the bed was rotated 180 degrees in anticipation of the colonoscopy. After a digital rectal examination was performed, the standard colonoscope was introduced into the rectum and advanced to the terminal ileum without difficulty. The quality of the prep was excellent with adequate visualization of the colonic mucosa. The patient tolerated this portion of the procedure well with no immediate perioperative complications. Upon conclusion of the procedure, all equipment was removed from the patient and she was transferred to Day Stay in satisfactory condition. EGD FINDINGS: Esophagus: Normal-appearing mucosa was seen in the proximal, mid, and distal esophagus. There was no evidence of erosions, ulcerations, mass, lesions, hiatal hernia, or active/recent bleeding. Stomach: Diffuse mild mucosal erythema was seen throughout the entire stomach including the gastric cardia, fundus, body, greater curvature, antrum, and incisura. However, there were no associated erosions, ulcerations, mass, lesions, or active/recent bleeding. Given her recent diagnosis of H pylori, this would be the most likely etiology for these findings and no biopsies were taken at this time. Duodenum: Normal-appearing mucosa was seen in both the duodenal bulb and second portion of the duodenum. There was no evidence of erosions, ulcerations, mass, lesions, or active/recent bleeding. Random duodenal biopsies were taken for evaluation of possible celiac sprue in light of the patient's chronic diarrhea. IMPRESSION: 1. Mild diffuse gastric mucosal erythema consistent with H pylori infection. 2. Otherwise, normal upper endoscopy. COLONOSCOPY FINDINGS: Digital rectal exam: Small external hemorrhoids were seen on external examination. Colon findings: Normal-appearing mucosa was seen within the terminal ileum as well as at the appendiceal orifice and ileocecal valve. Normal-appearing mucosa was then seen in the cecum, ascending colon, and transverse colon. A 2 to 3 mm polyp was seen in the descending colon and completely removed with biopsy forceps. It was retrieved and placed in a specimen jar for further evaluation. Normal-appearing mucosa was then seen in the sigmoid colon and rectum. Random biopsies were taken throughout the entire colon in the ascending, transverse, descending, and sigmoid colons for evaluation of possible microscopic colitis. Small internal hemorrhoids and hypertrophied anal papillae were seen on rectal retroflexion. IMPRESSION: 1. 2 to 3 mm descending colon polyp, status post biopsy forceps with complete resection. 2. Small internal and external hemorrhoids (most likely source of hematochezia). 3. Small hypertrophied anal papillae. 4. No etiology for the patient's diarrhea was seen during this examination. RECOMMENDATIONS: 1. We will follow up on the biopsy results with further care guided by pathology report. 2. We would start the patient on quadruple therapy as recommended/prescribed. 3. We would recommend a higher fiber diet, given the presence of hemorrhoids and chronic diarrhea. 4. Continue other current medications. 5. We would have the patient to follow up in the GI Clinic in 3 to 4 weeks for re-evaluation of her abdominal pain and diarrhea at that time. Job ID: [id number]
== END 2019-09-12 11:01 | disposition home or self-care (01) ==
LOC: SDC 07:43
PROVIDERS: ATTEND Internal Medicine
PROC: 0DB98ZX Excision of Duodenum, Via Natural or Artificial Opening Endoscopic, Diagnostic (ICD-10-PCS; principal; 2019-09-12)
PROC: 0DBK8ZX Excision of Ascending Colon, Via Natural or Artificial Opening Endoscopic, Diagnostic (ICD-10-PCS; 2019-09-12)
PROC: 0DBL8ZX Excision of Transverse Colon, Via Natural or Artificial Opening Endoscopic, Diagnostic (ICD-10-PCS; 2019-09-12)
PROC: 0DBN8ZX Excision of Sigmoid Colon, Via Natural or Artificial Opening Endoscopic, Diagnostic (ICD-10-PCS; 2019-09-12)
PROC: 0DBM8ZX Excision of Descending Colon, Via Natural or Artificial Opening Endoscopic, Diagnostic (ICD-10-PCS; 2019-09-12)
DX: D12.4 Benign neoplasm of descending colon (principal); K52.9 Noninfective gastroenteritis and colitis, unspecified; K64.4 Residual hemorrhoidal skin tags; K64.8 Other hemorrhoids; E11.9 Type 2 diabetes mellitus without complications; I10 Essential (primary) hypertension; F32.9 Major depressive disorder, single episode, unspecified; E66.9 Obesity, unspecified; Z68.43 Body mass index [BMI] 50.0-59.9, adult; Z79.4 Long term (current) use of insulin; Z79.899 Other long term (current) drug therapy
CPT/HCPCS: 36416; 88305; J2001; J2704

== ENCOUNTER 2021-08-20 02:50 | Emergency (ER) | payer MEDICARE, MEDICAID ==
[2021-08-20] MEDS ORDERED: Ibuprofen 200 MG TAB ONE (03:59)
[2021-08-20] MEDS ORDERED: Cyclobenzaprine 10 MG TAB ONE (04:01)
== END 2021-08-20 05:30 | disposition home or self-care (01) ==
LOC: ERS 02:50
DX: M62.830 Muscle spasm of back (principal); I10 Essential (primary) hypertension; E11.9 Type 2 diabetes mellitus without complications
CPT/HCPCS: 99283

== ENCOUNTER 2021-08-23 12:58 | Observation (INO) | payer MEDICARE, MEDICAID ==
[2021-08-23 13:28] LABS: #Basophils 0.1 thou/uL (0.0-0.2); #Eosinphils 0.1 thou/uL (0.0-0.7); #Lymphocytes 1.6 thou/uL (1.20-3.40); #Monocytes 0.5 thou/uL (0.11-0.59); #Neutrophils 4.5 thou/uL (1.40-6.50); %Eosinophils 1.8 % (0.0-10.0); %Lymphocytes 23.4 % (21.0-51.0); %Monocytes 7.4 % (0.0-10.0); %Neutrophils 66.3 % (42.0-75.0); Hemoglobin 13.4 g/dL (12.0-16.0); Mean Corpuscular HGB CONC 31.7 g/dL (32.0-36.0); Mean Corpuscular Hemoglobin 29.4 pg (27.0-31.0); Mean Corpuscular Volume 92.7 fL (78.0-98.0); Mean Platelet Volume 8.5 fL (7.4-10.4); Platelet Count 208 thou/uL (130-400); RBC Distribution Width 12.3 % (11.5-14.5); Red Blood Cell (RBC) Count 4.56 mill/uL (4.20-5.40); White Blood Cell (WBC) Count 6.8 thou/uL (4.8-10.8)
[2021-08-23 14:02] LABS: ALT (SGPT) 17 U/L (8-55); AST (SGOT) 19 U/L (5-34); Albumin 3.8 g/dL (3.5-5.0); Alkaline Phosphatase 89 U/L (40-110); Anion Gap 11 mmol/L (10-20); BUN (Urea Nitrogen) 16 mg/dL (7.0-18.7); Bilirubin, Total 0.4 mg/dL (0.2-1.2); Calc. Creatinine Clearance 0 mL/min (70-130); Calcium 9.7 mg/dL (7.8-10.44); Carbon Dioxide 28 mmol/L (22-29); Chloride 103 mmol/L (98-107); Glucose 83 mg/dL (70-105); Potassium 4.1 mmol/L (3.5-5.1); Protein, Total 7.8 g/dL (6.0-8.3); Sodium 138 mmol/L (136-145)
[2021-08-23 17:17] VITALS: BMI 61.4
[2021-08-23] MEDS ORDERED: FLU VACC QS2021-22(6MOS UP)/PF 60 MCG/0.5 ML SYRINGE IM ONE (17:30)
[2021-08-23 17:31] LABS: Troponin I Less than 0.010 ng/mL (< 0.028)
[2021-08-23] MEDS ORDERED: Ondansetron PF 4 MG/2 ML Vial IVP PRN (18:59)
[2021-08-23] MEDS ORDERED: Acetaminophen 325 MG TAB PO PRN (18:59)
[2021-08-23] MEDS ORDERED: Bisacodyl 5 MG TAB PO PRN (18:59)
[2021-08-23] MEDS ORDERED: HYDROcodone/Acetaminophen 5/325 mg Tablet PO PRN (18:59)
[2021-08-23] MEDS ORDERED: Senokot S 8.6-50 MG TAB PO PRN (18:59)
[2021-08-23] MEDS ORDERED: Enoxaparin Sodium 40 MG/0.4 ML SYRINGE SC SCH (19:00)
[2021-08-23 19:02] LABS: SARS-CoV-2 NAA Rapid Test Not Detected (NotDetected)
[2021-08-23] MEDS ORDERED: hydrALAZINE 20 MG/ML VIAL SLOW IVP PRN (19:03)
[2021-08-23] MEDS ORDERED: Melatonin 3 MG TAB PO PRN (19:03)
[2021-08-23] MEDS ORDERED: Dextrose 50% Abboject 50 ML SYRINGE SLOW IVP PRN (19:13)
[2021-08-23] MEDS ORDERED: HumaLOG 300 UNITS/3 ML VIAL SC PRN ×2 (19:13)
[2021-08-23] MEDS ORDERED: Dextrose 5% in Water 1,000 ML IV PRN (19:13)
[2021-08-23 20:40] LABS: Cardiac Risk 3.8 (Less than 4.5)
[2021-08-23 20:42] LABS: Troponin I Less than 0.010 ng/mL (< 0.028)
[2021-08-23] MEDS: Atorvastatin Calcium 40 MG TAB PO SCH (21:25)
[2021-08-23] MEDS: Famotidine/PF 20 mg/2ml Vial SLOW IVP SCH (21:25)
[2021-08-23] MEDS: HYDROcodone/Acetaminophen 7.5/325 mg Tablet PO PRN (21:26)
[2021-08-23] MEDS: Nitroglycerin 0.4 MG TAB (25 Tab Bottle) SL PRN ×3 (22:59→23:16)
[2021-08-23] MEDS ORDERED: Lidocaine 2% Viscous Solution 20 ML, Aluminum & Magnesium Hydroxide 30 ML, Donnatal Eli... SSW SCH (23:30)
[2021-08-23] MEDS ORDERED: Cyclobenzaprine 10 MG TAB PO SCH (23:30)
[2021-08-23 23:36] LABS: Troponin I Less than 0.010 ng/mL (< 0.028)
[2021-08-24] MEDS ORDERED: traMADol HCl 50 MG TAB PO SCH (02:56)
[2021-08-24] MEDS ORDERED: hydrOXYzine 25 MG TAB PO SCH (02:57)
[2021-08-24 05:34] LABS: #Eosinphils 0.1 thou/uL (0.0-0.7); #Lymphocytes 2.2 thou/uL (1.20-3.40); #Monocytes 0.7 thou/uL (0.11-0.59); #Neutrophils 5.2 thou/uL (1.40-6.50); %Basophils 0.3 % (0.0-1.0); %Eosinophils 1.4 % (0.0-10.0); %Lymphocytes 26.6 % (21.0-51.0); %Neutrophils 63.6 % (42.0-75.0); Hemoglobin 12.2 g/dL (12.0-16.0); Mean Corpuscular HGB CONC 31.5 g/dL (32.0-36.0); Mean Corpuscular Hemoglobin 29.3 pg (27.0-31.0); Mean Platelet Volume 8.9 fL (7.4-10.4); Platelet Count 210 thou/uL (130-400); RBC Distribution Width 12.3 % (11.5-14.5); Red Blood Cell (RBC) Count 4.18 mill/uL (4.20-5.40); White Blood Cell (WBC) Count 8.2 thou/uL (4.8-10.8)
[2021-08-24 06:18] LABS: ALT (SGPT) 15 U/L (8-55); AST (SGOT) 18 U/L (5-34); Albumin 3.5 g/dL (3.5-5.0); Alkaline Phosphatase 85 U/L (40-110); Anion Gap 14 mmol/L (10-20); BUN (Urea Nitrogen) 18 mg/dL (7.0-18.7); Bilirubin, Total 0.3 mg/dL (0.2-1.2); Calc. Creatinine Clearance 158 mL/min (70-130); Calcium 9.5 mg/dL (7.8-10.44); Carbon Dioxide 24 mmol/L (22-29); Cardiac Risk 3.8 (Less than 4.5); Chloride 103 mmol/L (98-107); Cholesterol 153 mg/dl (< 200 Desired); Globulin 3.6 g/dL (2.4-3.5); Glucose 152 mg/dL (70-105); HDL Cholesterol 40 mg/dL (>60 Neg Risk); LDL Cholesterol, Calculated 83 mg/dL; Potassium 4.2 mmol/L (3.5-5.1); Protein, Total 7.1 g/dL (6.0-8.3); Sodium 137 mmol/L (136-145); Triglycerides 148 mg/dL (Less than 150)
[2021-08-24] MEDS: Enoxaparin Sodium 40 MG/0.4 ML SYRINGE SC SCH (10:34)
[2021-08-24] MEDS: Famotidine/PF 20 mg/2ml Vial SLOW IVP SCH ×2 (10:34→21:57)
[2021-08-24] MEDS ORDERED: Regadenoson 0.4 MG/5 ML SYRINGE ONE (13:02)
[2021-08-24] MEDS: Atorvastatin Calcium 40 MG TAB PO SCH (21:57)
[2021-08-24] MEDS: HYDROcodone/Acetaminophen 7.5/325 mg Tablet PO PRN (22:04)
[2021-08-25 07:54] VITALS: TEMP 98.3
[2021-08-25] MEDS: Famotidine/PF 20 mg/2ml Vial SLOW IVP SCH (07:55)
[2021-08-25] MEDS: Enoxaparin Sodium 40 MG/0.4 ML SYRINGE SC SCH (07:55)
[2021-08-25] MEDS ORDERED: Atenolol 25 MG TAB PO SCH (09:00)
[2021-08-25] MEDS ORDERED: Hydrochlorothiazide 25 MG TAB PO SCH (09:00)
[2021-08-25] MEDS ORDERED: Spironolactone 25 MG TAB PO SCH (09:00)
[2021-08-25 11:40] VITALS: BP 112/68
== END 2021-08-25 12:24 | disposition home or self-care (01) ==
LOC: ERS 12:58 → 2SW 16:02
PROVIDERS: ADMIT Family Medicine; ATTEND Internal Medicine
DX: R07.89 Other chest pain (principal); E78.5 Hyperlipidemia, unspecified; I11.9 Hypertensive heart disease without heart failure; E11.9 Type 2 diabetes mellitus without complications; I08.1 Rheumatic disorders of both mitral and tricuspid valves; E66.01 Morbid (severe) obesity due to excess calories; Z68.44 Body mass index [BMI] 60.0-69.9, adult; Z79.4 Long term (current) use of insulin; Z79.899 Other long term (current) drug therapy; Z20.822 Contact with and (suspected) exposure to COVID-19
CPT/HCPCS: 71045; 71275; 78452; 80053 ×2; 80061 ×2; 82962 ×3; 83036; 84484 ×2; 85025 ×2; 85379; 93005; 93017; 93306; A9500; U0002; 36415; 36416; 96372; 96374; 96376; G0378; J1650; J2785; S0028

== ENCOUNTER 2022-11-02 08:22 | Emergency (ER) | payer OTHER ==
[2022-11-02] MEDS ORDERED: Acetaminophen 500 MG TAB ONE (09:51)
[2022-11-02] MEDS ORDERED: Metoclopramide HCl 10 MG TAB ONE (09:51)
[2022-11-02] MEDS ORDERED: diphenhydrAMINE 25 MG CAP ONE (09:51)
[2022-11-02] MEDS ORDERED: Ketorolac Tromethamine 30 MG/ML VIAL ONE (09:51)
== END 2022-11-02 10:32 | disposition home or self-care (01) ==
LOC: ERS 08:22
DX: R51.9 Headache, unspecified (principal); E11.9 Type 2 diabetes mellitus without complications; I10 Essential (primary) hypertension; Z79.4 Long term (current) use of insulin
CPT/HCPCS: 96372; 99283; J1885

== ENCOUNTER 2022-12-21 10:45 | Outpatient (CLI) | payer OTHER | END 2022-12-21 10:46 | disposition home or self-care (01) | LOC: BICMAMMO 10:45 | PROVIDERS: ATTEND Nurse Practitioner Family | DX: Z12.31 Encounter for screening mammogram for malignant neoplasm of breast (principal); Z13.820 Encounter for screening for osteoporosis; Z91.89 Other specified personal risk factors, not elsewhere classified | CPT/HCPCS: 77063; 77067; 77080 ==

== ENCOUNTER 2023-01-03 09:00 | Outpatient (CLI) | payer OTHER ==
[2023-01-03 11:08] LABS: #Eosinphils 0.1 10x3/uL (0.0-0.5); #Monocytes 0.5 10x3/uL (0.0-1.1); #Neutrophils 4.8 10x3/uL (1.5-8.4); %Basophils 0.3 % (0.0-2.0); %Eosinophils 0.9 % (0.0-6.0); %Lymphocytes 20.4 % (18.0-47.0); %Neutrophils 70.1 % (40.0-75.0); Hemoglobin 12.6 g/dL (12.0-15.5); Mean Corpuscular Hemoglobin 29.1 pg (27.0-33.0); Mean Platelet Volume 11.6 fl (7.4-10.4); Platelet Count 227 10x3/uL (150-450); RBC Distribution Width 12.5 % (11.5-14.5); Red Blood Cell (RBC) Count 4.33 10x6/uL (3.90-5.03); White Blood Cell (WBC) Count 6.8 10x3/uL (3.5-10.5)
[2023-01-03 11:28] LABS: ALT (SGPT) 13 U/L (8-55); AST (SGOT) 19 U/L (5-34); Albumin 3.9 g/dL (3.5-5.0); Alkaline Phosphatase 91 U/L (40-110); Anion Gap 15 mmol/L (10-20); BUN (Urea Nitrogen) 13 mg/dL (7.0-18.7); Bilirubin, Total 0.6 mg/dL (0.2-1.2); Calc. Creatinine Clearance 0 mL/min (70-130); Calcium 9.1 mg/dL (7.8-10.44); Carbon Dioxide 25 mmol/L (22-29); Chloride 102 mmol/L (98-107); Estimated GFR 73; Globulin 3.5 g/dL (2.4-3.5); Glucose 118 mg/dL (70-105); Potassium 4.5 mmol/L (3.5-5.1); Protein, Total 7.4 g/dL (6.0-8.3); Sodium 137 mmol/L (136-145)
== END 2023-01-03 09:01 | disposition home or self-care (01) ==
LOC: LABBT 09:00
PROVIDERS: ATTEND Surgery
DX: Z01.818 Encounter for other preprocedural examination (principal); D17.0 Benign lipomatous neoplasm of skin and subcutaneous tissue of head, face and neck; D17.21 Benign lipomatous neoplasm of skin and subcutaneous tissue of right arm
CPT/HCPCS: 80053; 85025; 93005; 93010

== ENCOUNTER 2023-01-08 08:13 | Day surgery (SDC) | payer OTHER, MEDICAID ==
[2023-01-03 09:41] VITALS: BMI 58.6
[2023-01-08] MEDS ORDERED: Sodium Chloride 0.9% 100 ML ONE (09:07)
[2023-01-08] MEDS ORDERED: CEFAZOLIN 2 GM VIAL ONE (09:07)
[2023-01-08] MEDS ORDERED: Bupivacaine/Epinephrine 0.25% 30 ML VIAL ONE (10:12)
[2023-01-08] MEDS ORDERED: Lidocaine 2% PF 5 ML VIAL ONE (10:12)
== END 2023-01-08 10:30 | disposition home or self-care (01) ==
LOC: SDC 08:13
PROVIDERS: ATTEND Surgery
DX: D17.0 Benign lipomatous neoplasm of skin and subcutaneous tissue of head, face and neck (principal); D17.21 Benign lipomatous neoplasm of skin and subcutaneous tissue of right arm; I10 Essential (primary) hypertension; E78.00 Pure hypercholesterolemia, unspecified; E11.9 Type 2 diabetes mellitus without complications; Z53.8 Procedure and treatment not carried out for other reasons; Z79.4 Long term (current) use of insulin; Z79.899 Other long term (current) drug therapy
CPT/HCPCS: J2001; J3490

== ENCOUNTER 2023-01-09 11:16 | Emergency (ER) | payer OTHER, MEDICAID ==
[2023-01-09 12:51] LABS: #Eosinphils 0.1 thou/uL (0.0-0.7); #Lymphocytes 1.4 thou/uL (1.20-3.40); #Monocytes 0.5 thou/uL (0.11-0.59); %Eosinophils 0.8 % (0.0-10.0); %Lymphocytes 20.7 % (21.0-51.0); %Monocytes 6.9 % (0.0-10.0); %Neutrophils 71.6 % (42.0-75.0); Hemoglobin 11.6 g/dL (12.0-16.0); Mean Corpuscular HGB CONC 32.6 g/dL (32.0-36.0); Mean Corpuscular Hemoglobin 30.4 pg (27.0-31.0); Mean Corpuscular Volume 93.1 fl (78.0-98.0); Mean Platelet Volume 8.8 fL (7.4-10.4); Platelet Count 179 10x3/uL (130-400); Red Blood Cell (RBC) Count 3.83 mill/uL (4.20-5.40); White Blood Cell (WBC) Count 6.9 10x3/uL (4.8-10.8)
[2023-01-09 12:58] LABS: ALT (SGPT) 12 U/L (8-55); AST (SGOT) 17 U/L (5-34); Albumin 3.5 g/dL (3.5-5.0); Alkaline Phosphatase 80 U/L (40-110); Anion Gap 12 mmol/L (10-20); BUN (Urea Nitrogen) 13 mg/dL (7.0-18.7); Bilirubin, Total 0.3 mg/dL (0.2-1.2); Calc. Creatinine Clearance 0 mL/min (70-130); Calcium 8.9 mg/dL (7.8-10.44); Carbon Dioxide 25 mmol/L (22-29); Chloride 107 mmol/L (98-107); Estimated GFR 82; Globulin 3.3 g/dL (2.4-3.5); Glucose 125 mg/dL (70-105); Magnesium 1.6 mg/dL (1.6-2.6); Potassium 3.9 mmol/L (3.5-5.1); Protein, Total 6.8 g/dL (6.0-8.3); Sodium 140 mmol/L (136-145)
[2023-01-09 13:52] LABS: Troponin I Less than 0.010 ng/mL (< 0.028)
[2023-01-09] MEDS ORDERED: Ketorolac Tromethamine 30 MG/ML VIAL ONE (14:50)
== END 2023-01-09 15:16 | disposition home or self-care (01) ==
LOC: ERS 11:16
DX: R20.2 Paresthesia of skin (principal); M54.2 Cervicalgia; E11.9 Type 2 diabetes mellitus without complications; I10 Essential (primary) hypertension
CPT/HCPCS: 36415; 71045; 80053; 83735; 84484; 85025; 93005; 96372; J1885

== ENCOUNTER 2023-01-13 19:11 | Emergency (ER) | payer MEDICAID, OTHER ==
[2023-01-13 20:25] LABS: #Basophils 0.1 thou/uL (0.0-0.2); #Eosinphils 0.1 thou/uL (0.0-0.7); #Monocytes 0.9 thou/uL (0.11-0.59); #Neutrophils 4.9 thou/uL (1.40-6.50); %Lymphocytes 24.7 % (21.0-51.0); %Monocytes 11.2 % (0.0-10.0); %Neutrophils 62.1 % (42.0-75.0); Hemoglobin 12.7 g/dL (12.0-16.0); Mean Corpuscular HGB CONC 32.5 g/dL (32.0-36.0); Mean Corpuscular Hemoglobin 30.4 pg (27.0-31.0); Mean Corpuscular Volume 93.7 fl (78.0-98.0); Mean Platelet Volume 8.7 fL (7.4-10.4); Platelet Count 201 10x3/uL (130-400); Red Blood Cell (RBC) Count 4.19 mill/uL (4.20-5.40); White Blood Cell (WBC) Count 7.9 10x3/uL (4.8-10.8)
[2023-01-13 20:30] LABS: ALT (SGPT) 11 U/L (8-55); AST (SGOT) 18 U/L (5-34); Albumin 3.7 g/dL (3.5-5.0); Alkaline Phosphatase 89 U/L (40-110); Anion Gap 11 mmol/L (10-20); BUN (Urea Nitrogen) 14 mg/dL (7.0-18.7); Bilirubin, Total 0.3 mg/dL (0.2-1.2); Calc. Creatinine Clearance 0 mL/min (70-130); Calcium 9.7 mg/dL (7.8-10.44); Carbon Dioxide 28 mmol/L (22-29); Chloride 103 mmol/L (98-107); Estimated GFR 52; Globulin 3.6 g/dL (2.4-3.5); Glucose 72 mg/dL (70-105); Potassium 4.3 mmol/L (3.5-5.1); Protein, Total 7.3 g/dL (6.0-8.3); Sodium 138 mmol/L (136-145)
== END 2023-01-14 00:17 | disposition home or self-care (01) ==
LOC: ERS 19:11
DX: R07.9 Chest pain, unspecified (principal); R00.2 Palpitations; E11.9 Type 2 diabetes mellitus without complications; I10 Essential (primary) hypertension
CPT/HCPCS: 36415; 71045; 80053; 84443; 84484; 85025; 93005

== ENCOUNTER 2023-03-13 12:00 | Emergency (ER) | payer OTHER ==
[2023-03-13 12:27] LABS: #Monocytes 0.7 thou/uL (0.11-0.59); #Neutrophils 6.8 thou/uL (1.40-6.50); %Basophils 0.3 % (0.0-1.0); %Eosinophils 0.4 % (0.0-10.0); %Lymphocytes 15.6 % (21.0-51.0); %Monocytes 7.6 % (0.0-10.0); %Neutrophils 75.9 % (42.0-75.0); Hemoglobin 13.3 g/dL (12.0-16.0); Mean Corpuscular HGB CONC 30.8 g/dL (32.0-36.0); Mean Corpuscular Hemoglobin 29.2 pg (27.0-31.0); Mean Corpuscular Volume 94.7 fl (78.0-98.0); Platelet Count 215 10x3/uL (130-400); RBC Distribution Width 12.7 % (11.5-14.5); Red Blood Cell (RBC) Count 4.56 mill/uL (4.20-5.40); White Blood Cell (WBC) Count 8.9 10x3/uL (4.8-10.8)
[2023-03-13 12:51] LABS: ALT (SGPT) 14 U/L (8-55); AST (SGOT) 18 U/L (5-34); Albumin 4.2 g/dL (3.5-5.0); Alkaline Phosphatase 86 U/L (40-110); Anion Gap 15 mmol/L (10-20); BUN (Urea Nitrogen) 15 mg/dL (7.0-18.7); Bilirubin, Total 0.6 mg/dL (0.2-1.2); Calc. Creatinine Clearance 0 mL/min (70-130); Calcium 10.3 mg/dL (7.8-10.44); Carbon Dioxide 27 mmol/L (22-29); Chloride 102 mmol/L (98-107); Estimated GFR 71; Globulin 3.8 g/dL (2.4-3.5); Glucose 92 mg/dL (70-105); Potassium 4.4 mmol/L (3.5-5.1); Sodium 140 mmol/L (136-145)
== END 2023-03-13 14:58 | disposition home or self-care (01) ==
LOC: ERS 12:00
DX: I10 Essential (primary) hypertension (principal); E11.9 Type 2 diabetes mellitus without complications; Z79.899 Other long term (current) drug therapy
CPT/HCPCS: 36415; 80053; 84484; 85025; 93005